=== PATIENT | male | born 1955 | race Caucasian/White ===

== ENCOUNTER 2016-12-27 11:11 | Emergency (ER) | payer MEDICARE, MEDICAID ==
[~2016-12-27] VITALS: Ht 182.9 cm; Wt 77.3 kg
[2016-12-27] MEDS ORDERED: IMDUR 30MG30 MG/TAB PO (12:21)
[2016-12-27] MEDS ORDERED: ATIVAN 1MG T1 MG/TAB PO (12:22)
[2016-12-27] MEDS ORDERED: LIPITOR 40MG TA40 MG PO (12:23)
[2016-12-27] MEDS ORDERED: ZESTRIL 10MG10 MG PO (12:23)
[2016-12-27] MEDS ORDERED: TOPROL XL 25MG25 MG PO (12:23)
[2016-12-27] MEDS ORDERED: CELEXA 20MG20 MG/TAB PO (12:23)
[2016-12-27] MEDS ORDERED: PLAVIX 75MG TAB75 MG PO (12:24)
[2016-12-27] MEDS ORDERED: BETAPACE 80MG80 MG PO (12:29)
[2016-12-27] MEDS ORDERED: LASIX 20MG TABL20 MG PO (12:32)
[2016-12-27] MEDS ORDERED: ASPIRIN 81M81 MG/TA2 PO (12:40)
[2016-12-27 12:43] LABS: BASO # 0.1 (0.0-0.2); BASO % 0.9 % (0.0-2.0); EOS # 0.4 (0.0-0.7); EOS % 4.9 % (0-4.0); GRAN # 4.9 (1.4-6.5); GRAN % 65.4 % (42.2-75.2); HEMOGLOBIN 14.6 g/dl (13.5-18.0); LYMPH # 1.5 (1.2-3.4); LYMPH % 19.6 % (20.0-51.0); MEAN CELL VOLUME 96 fl (80.0-100.0); MEAN CORPUSCULAR HEMOGLOBIN 33 pg (27.0-31.0); MEAN CORPUSCULAR HGB CONC 34 g/dl (33.0-37.0); MONO # 0.7 (0.1-0.6); MONO % 8.9 % (1.7-9.3); PLATELET COUNT 161 K/mm3 (130-400); RED BLOOD COUNT 4.47 M/mm3 (4.20-5.60); REDCELL DISTRIBUTION WIDTH-CV 16.3 % (11.5-14.5); WHITE BLOOD COUNT 7.5 K/mm3 (4.8-10.8)
[2016-12-27 12:49] VITALS: BP 119/89; PULSE 69
[2016-12-27 12:51] LABS: ADJUSTED CALCIUM 9.2 mg/dL (8.4-10.2); ALANINE AMINOTRANSFERASE 19 U/L (21-72); ALBUMIN 3.7 gm/dL (3.5-5.0); ALKALINE PHOSPHATASE 72 U/L (50-136); ANION GAP 11 mmol/L (7-16); BILIRUBIN,TOTAL 0.9 mg/dL (0.0-1.0); BLOOD UREA NITROGEN 21 mg/dL (9-20); CARBON DIOXIDE 24 mmol/L (22-30); CHLORIDE 106 mmol/L (98-107); CREATININE, serum 1.38 mg/dL (0.66-1.25); GLUCOSE 87 mg/dL (74-106); POTASSIUM 4.5 mmol/L (3.4-5.0); SODIUM 142 mmol/L (137-145); TOTAL PROTEIN 7.4 gm/dL (6.4-8.2)
[2016-12-27 13:03] LABS: B-TYPE NATRIURETIC PEPTIDE 2150 pg/mL (0-125)
[2016-12-27 13:13] LABS: TROPONIN-I < 0.012 ng/mL (0.000-0.034)
== END 2016-12-27 13:10 | disposition short-term general hospital (02) ==
LOC: COL.ER 11:11
PROVIDERS: Emergency Medicine
DX: I49.3 Ventricular premature depolarization (principal); R07.9 Chest pain, unspecified; I10 Essential (primary) hypertension; E78.5 Hyperlipidemia, unspecified; Z45.018 Encounter for adjustment and management of other part of cardiac pacemaker; Z95.810 Presence of automatic (implantable) cardiac defibrillator; Z95.1 Presence of aortocoronary bypass graft; I25.2 Old myocardial infarction; I25.10 Atherosclerotic heart disease of native coronary artery without angina pectoris; Z79.02 Long term (current) use of antithrombotics/antiplatelets; Z95.5 Presence of coronary angioplasty implant and graft
CPT/HCPCS: J2060; J2405